=== PATIENT | male | born 1960 | race Two or more races ===

== ENCOUNTER 2017-06-05 12:03 | Emergency (ER) | payer MEDICAID ==
[~2017-06-05] VITALS: Ht 170.2 cm; Wt 81.6 kg
[~2017-06-05 12:03] MED LIST: AMLODIPINE BESYL5 MG ORAL; ASPIR 8181 MG ORAL; CARVEDILOL6.25 MG ORAL; DIABETES MEDICATION; NORVASC10 MG ORAL; ZESTRIL10 MG ORAL
[2017-06-05] MEDS ORDERED: VIMPAT50 MG PO (13:13)
[2017-06-05] MEDS ORDERED: TRAZODONE HCL150 MG ORAL (13:13)
[2017-06-05] MEDS ORDERED: XARELTO10 MG ORAL (13:15)
[2017-06-05] MEDS ORDERED: METOPROLOL TART25 MG ORAL (13:15)
[2017-06-05] MEDS ORDERED: LIPITOR20 MG ORAL (13:15)
[2017-06-05] MEDS ORDERED: TAMSULOSIN HCL0.4 MG ORAL (13:15)
[2017-06-05] MEDS ORDERED: PEPCID20 MG ORAL (13:15)
[2017-06-05] MEDS ORDERED: FERROUS SULFAT325 MG ORAL (13:15)
[2017-06-05 13:44] VITALS: BP 155/85
[2017-06-05 13:45] VITALS: BP 150/75
--- NOTE | 2017-06-09 13:55 | Emergency Room Report ---
History of Present Illness General Chief Complaint: Male Urogenital Problems Source: Patient Present Illness HPI 57-year-old male presents to ED for evaluation. States the last 2 days he's been having difficulty urinating. Notes prior history of prostate problems but cannot provide further explanation. patient states he is currently on Flomax as prescribed by his clinic. Notes 5/10 pressure pain in the suprapubic region. Denies any fevers or chills. Denies nausea or vomiting denies flank pain. No other aggravating or relieving factors. Denies any other associated symptoms Allergies: Coded Allergies: No Known Allergies (Unverified , 03/17/14) Patient History Past Medical History: HTN, CVA/TIA, seizures Pertinent Family History: none Social History: Denies: smoking, alcohol use, drug use Immunizations: UTD Reviewed Nursing Documentation: PMH: Agreed, PSxH: Agreed Nursing Documentation-PMH Past Medical History: No History, Except For Hx Cardiac Problems: Yes Hx Hypertension: Yes Hx Diabetes: Yes Hx Cancer: No Hx Gastrointestinal Problems: No Hx Neurological Problems: No Hx Cerebrovascular Accident: Yes Hx Seizures: Yes Review of Systems All Other Systems: negative except mentioned in HPI Physical Exam Vital Signs Date Time Temp Pulse Resp B/P (MAP) Pulse Ox O2 Delivery O2 Flow Rate FiO2 06/05/17 12:15 97.3 65 16 151/90 99 Room Air Sp02 EP Interpretation: reviewed, normal General Appearance: no apparent distress, alert, GCS 15, non-toxic Head: normocephalic, atraumatic Eyes: bilateral eye normal inspection, bilateral eye PERRL ENT: hearing grossly normal, normal pharynx, no angioedema, normal voice Neck: full range of motion, supple/symm/no masses Respiratory: chest non-tender, lungs clear, normal breath sounds, speaking full sentences Cardiovascular #1: regular rate, rhythm, no edema Cardiovascular #2: 2+ carotid (R), 2+ carotid (L), 2+ radial (R), 2+ radial (L) , 2+ dorsalis pedis (R), 2+ dorsalis pedis (L) Gastrointestinal: normal bowel sounds, non tender, soft, non-distended, no guarding, no rebound Rectal: deferred Genitourinary: normal inspection, no CVA tenderness Musculoskeletal: back normal, gait/station normal, normal range of motion, non- tender Neurologic: alert, oriented x3, responsive, motor strength/tone normal, sensory intact, speech normal Psychiatric: judgement/insight normal, memory normal, mood/affect normal, no suicidal/homicidal ideation Reflexes: 3+ bicep (R), 3+ bicep (L), 3+ tricep (R), 3+ tricep (L), 3+ knee (R) , 3+ knee (L) Skin: normal color, no rash, warm/dry, well hydrated Lymphatic: no adenopathy Medical Decision Making Diagnostic Impression: Primary Impression: Urinary retention ER Course Hospital Course 57-year-old M presents to ED complaining of urinary retention. Differential diagnoses include: obstruction, UTI, BPH Clinical course Patient placed on stretcher. After initial history and physical I ordered UA, moe cather We are Unable to Pl., Moe catheter due to urethral stricture I spoke to urology Dr. Juan; he is able to see the patient patient states he does not want to wait and wants to go to Dr Hines office Patient is stable with no hypertension or toxic signs. Patient can safely be discharged pending he goes to the urology office as scheduled Spoke to Dr. Juan and he was able to dilate the urethral stricture and discharge patient with moe catheter Diagnosis - urinary retention Stable and discharged home with moe + leg bag. Instructed to followup with PMD/urologist. Return to ED if symptoms recur or worsen Last Vital Signs Date Time Temp Pulse Resp B/P (MAP) Pulse Ox O2 Delivery O2 Flow Rate FiO2 06/05/17 13:45 75 18 150/75 99 Room Air 06/05/17 13:44 97.3 Status: improved Disposition: HOME, SELF-CARE Condition: Stable Referrals: Sivakumar Juan M.D. NOT CHOSEN IPA/,REFERRING (PCP) Patient Instructions: Benign Prostatic Hyperplasia CHUCK MIRELES M.D. Jun 09, 2017 13:55
== END 2017-06-05 13:48 | disposition home or self-care (01) ==
LOC: EMR 12:32
DX: R33.9 Retention of urine, unspecified (principal); I10 Essential (primary) hypertension; E11.9 Type 2 diabetes mellitus without complications; Z86.73 Personal history of transient ischemic attack (TIA), and cerebral infarction without residual deficits
CPT/HCPCS: 51702; 99283

== ENCOUNTER 2017-06-09 20:44 | Emergency (ER) | payer MEDICAID ==
[~2017-06-09] VITALS: Ht 167.6 cm; Wt 82.6 kg
[~2017-06-09 20:44] MED LIST changes: +FERROUS SULFAT325 MG ORAL; +LIPITOR20 MG ORAL; +METOPROLOL TART25 MG ORAL; +PEPCID20 MG ORAL; +TAMSULOSIN HCL0.4 MG ORAL; +TRAZODONE HCL150 MG ORAL; +VIMPAT50 MG PO; +XARELTO10 MG ORAL
--- NOTE | 2017-06-09 21:11 | Emergency Room Report ---
History of Present Illness General Chief Complaint: Male Urogenital Problems Source: Family Member Present Illness HPI Is a 57-year-old male with multiple problem. He was here last week for urinary retention. A De [place] was placed. Since then he's been having pain on the penis. Pain is severe. 10 out of 10. Worse with urination. Unable to get any comfort. He has an appointment with urologist but will be until next week. He came in wanting the De [place] to remove. Denies any fever chills denies any nausea vomiting. Currently taking Cipro. Allergies: Coded Allergies: No Known Allergies (Unverified , 03/17/14) Patient History Past Medical History: see triage record, old chart reviewed, HTN Past Surgical History: other Pertinent Family History: none Social History: Denies: smoking Immunizations: other Reviewed Nursing Documentation: PMH: Agreed, PSxH: Agreed Nursing Documentation-PMH Hx Cardiac Problems: Yes Hx Hypertension: Yes Hx Diabetes: Yes Hx Cancer: No Hx Gastrointestinal Problems: No Hx Neurological Problems: No Hx Cerebrovascular Accident: Yes Hx Seizures: Yes Review of Systems Eye: Denies: eye pain, blurred vision ENT: Denies: ear pain, nose congestion, throat swelling Respiratory: Denies: cough, shortness of breath Cardiovascular: Denies: chest pain, palpitations Gastrointestinal: Denies: abdominal pain, diarrhea, nausea, vomiting Genitourinary: Reports: pain Musculoskeletal: Denies: back pain, joint pain Skin: Denies: rash Neurological: Denies: headache, numbness Endocrine: Denies: increased thirst, increased urine Hematologic/Lymphatic: Denies: easy bruising All Other Systems: negative except mentioned in HPI Physical Exam Vital Signs Date Time Temp Pulse Resp B/P (MAP) Pulse Ox O2 Delivery O2 Flow Rate FiO2 06/09/17 20:47 97.9 64 18 159/90 98 Room Air vitals with high blood pressure Sp02 EP Interpretation: reviewed, normal General Appearance: well appearing, no apparent distress, alert Head: normocephalic, atraumatic Eyes: bilateral eye PERRL, bilateral eye EOMI ENT: hearing grossly normal, normal pharynx Neck: full range of motion, supple, no meningismus Respiratory: chest non-tender, lungs clear, normal breath sounds Cardiovascular #1: regular rate, rhythm, no murmur Gastrointestinal: normal bowel sounds, non tender, no mass, no organomegaly, no bruit, non-distended Genitourinary: other - De [place] intact with clear urine. No bleeding. Musculoskeletal: back normal, gait/station normal, normal range of motion Neurologic: alert, oriented x3 Psychiatric: mood/affect normal Skin: warm/dry Medical Decision Making Diagnostic Impression: Primary Impression: Dysuria ER Course This patient presents with dysuria and penile pain secondary to his [place]. He requested it to be removed. De [place] was removed and patient able to urinate afterward. He said he felt fine without it. Will discharge home with instructions come back if he has urinary retention. Patient and expressed understanding. Last Vital Signs Date Time Temp Pulse Resp B/P (MAP) Pulse Ox O2 Delivery O2 Flow Rate FiO2 06/09/17 20:47 97.9 64 18 159/90 98 Room Air Status: improved Disposition: HOME, SELF-CARE Condition: Stable Additional Instructions: Followup with your Dr. in 2-3 days if not better. Return if unable to urinate or any concern. ZION LAMBERT M.D. Jun 09, 2017 21:11
[2017-06-09 21:13] VITALS: BP 155/88
[2017-06-09 21:49] VITALS: BP 142/74
[2017-06-09 21:50] VITALS: BP 142/74
== END 2017-06-09 21:51 | disposition home or self-care (01) ==
LOC: EMR 21:25
DX: R30.0 Dysuria (principal); T83.84XA Pain due to genitourinary prosthetic devices, implants and grafts, initial encounter; Y84.6 Urinary catheterization as the cause of abnormal reaction of the patient, or of later complication, without mention of misadventure at the time of the procedure; Y92.009 Unspecified place in unspecified non-institutional (private) residence as the place of occurrence of the external cause; I10 Essential (primary) hypertension; E11.9 Type 2 diabetes mellitus without complications; Z86.73 Personal history of transient ischemic attack (TIA), and cerebral infarction without residual deficits
CPT/HCPCS: 99283

== ENCOUNTER 2017-06-26 01:37 | Inpatient (IN) | payer MEDICAID ==
[2017-06-26] VITALS (8 sets, daily range): BP systolic 113–147; BP diastolic 67–95
[~2017-06-26] VITALS: Ht 157.5 cm; Wt 72.6 kg
[2017-06-26 02:15] LABS: BASOPHILS % (AUTO) 0.8 % (0.0-2.0); MEAN CORPUSCULAR HEMOGLOBIN 27.2 PG (27.0-31.0); MEAN CORPUSCULAR HGB CONC 32.9 G/DL (32.0-36.0); MEAN CORPUSCULAR VOLUME 83 FL (80-99); MONOCYTES % (AUTO) 6.5 % (1.0-10.0); NEUTROPHILS % (AUTO) 63.8 % (45.0-75.0); PLATELET COUNT 128 K/UL (150-450); RED BLOOD COUNT 5.76 M/UL (4.70-6.10); RED CELL DISTRIBUTION WIDTH 13.7 % (11.6-14.8); WHITE BLOOD COUNT 7.8 K/UL (4.8-10.8)
[2017-06-26 02:23] LABS: APPEARANCE,URINE CLEAR; KETONES,URINE NEGATIVE (NEGATIVE); LEUKOCYTE ESTERASE ,URINE NEGATIVE (NEGATIVE); NITRITE,URINE NEGATIVE (NEGATIVE); PH,URINE 5 (4.5-8.0); PROTEIN,URINE NEGATIVE (NEGATIVE); UROBILINOGEN,URINE NORMAL MG/DL (0.0-1.0)
[2017-06-26 02:25] LABS: ANION GAP 6 mmol/L (5-15); CARBON DIOXIDE 27 MMOL/L (21-32); CHLORIDE 108 MMOL/L (98-107); CREATININE 1.2 MG/DL (0.55-1.30); GLOMERULAR FILTRATION RATE > 60 mL/min (>60); POTASSIUM 4.2 MMOL/L (3.5-5.1); SODIUM 141 MMOL/L (136-145)
[2017-06-26 02:39] LABS: ALANINE AMINOTRANSFERASE 32 U/L (12-78); ALBUMIN/GLOBULIN RATIO 0.9 (1.0-2.7); ASPARTATE AMINO TRANSFERASE 20 U/L (15-37); CKMB 1.4 NG/ML (0.0-3.6); TOTAL PROTEIN 7.9 G/DL (6.4-8.2)
--- NOTE | 2017-06-26 05:54 | Emergency Room Report ---
History of Present Illness General Chief Complaint: Hypertension Source: Patient Present Illness Allergies: Coded Allergies: No Known Allergies (Unverified , 03/17/14) Patient History Past Medical History: HTN, CVA/TIA, seizures Past Surgical History: none Pertinent Family History: none Social History: Denies: smoking, alcohol use, drug use Immunizations: UTD Reviewed Nursing Documentation: PMH: Agreed, PSxH: Agreed Nursing Documentation-PMH Hx Cardiac Problems: Yes Hx Hypertension: Yes Hx Diabetes: Yes Hx Cancer: No Hx Gastrointestinal Problems: No Hx Neurological Problems: No Hx Cerebrovascular Accident: Yes Hx Seizures: Yes Review of Systems All Other Systems: negative except mentioned in HPI Physical Exam Vital Signs Date Time Temp Pulse Resp B/P (MAP) Pulse Ox O2 Delivery O2 Flow Rate FiO2 06/26/17 01:40 98.2 72 16 168/108 98 Room Air Sp02 EP Interpretation: reviewed, normal General Appearance: no apparent distress, alert, GCS 15, non-toxic Head: normocephalic, atraumatic Eyes: bilateral eye normal inspection, bilateral eye PERRL ENT: hearing grossly normal, normal pharynx, no angioedema, normal voice Neck: full range of motion, supple/symm/no masses Respiratory: chest non-tender, normal breath sounds, crackles, speaking full sentences Cardiovascular #1: regular rate, rhythm, no edema Cardiovascular #2: 2+ carotid (R), 2+ carotid (L), 2+ radial (R), 2+ radial (L) , 2+ dorsalis pedis (R), 2+ dorsalis pedis (L) Gastrointestinal: normal bowel sounds, non tender, soft, non-distended, no guarding, no rebound Rectal: deferred Genitourinary: normal inspection, no CVA tenderness Musculoskeletal: back normal, gait/station normal, normal range of motion, non- tender Neurologic: alert, oriented x3, responsive, motor strength/tone normal, sensory intact, speech normal Psychiatric: judgement/insight normal, memory normal, mood/affect normal, no suicidal/homicidal ideation Reflexes: 3+ bicep (R), 3+ bicep (L), 3+ tricep (R), 3+ tricep (L), 3+ knee (R) , 3+ knee (L) Skin: normal color, no rash, warm/dry, well hydrated Lymphatic: no adenopathy Medical Decision Making Diagnostic Impression: Primary Impression: COPD exacerbation Additional Impression: Respiratory distress ER Course Hospital Course 57-year-old M presenting to ED with SOB. Differential diagnoses include: Pneumonia, CHF exacerbation, pneumothorax, fluid overload Clinical course Patient placed on stretcher. On cardiac sonographer with stable vitals. After initial history and physical, I ordered nebulizer treatments. I ordered labs, IV fluids, EKG, chest x-ray, blood cultures, UA. Labs - no leukocytosis noted, hemoglobin/hematocrit stable, electrolytes okay, lactate okay, troponins negative CXR - atelectasis vs infiltrate EKG - nsr, no acute ischemic changes interpreted by me abx given Case discussed with Dr. Arteaga and he agreed to the patient to his service for further care and support I feel this is a highly complex case requiring extensive working including EKG/ Rhythm strip, Xray/CT/US, Blood/urine lab work, repeat exams while in ED, and administration of strong opiates/narcotics for pain control, admission to hospital or close patient follow up. Diagnosis - COPD exacerbation, resp distress Patient admitted to telemetry in serious condition Labs Test 06/26/17 02:00 06/26/17 02:06 White Blood Count 7.8 K/UL (4.8-10.8) Red Blood Count 5.76 M/UL (4.70-6.10) Hemoglobin 15.7 G/DL (14.2-18.0) Hematocrit 47.7 % (42.0-52.0) Mean Corpuscular Volume 83 FL (80-99) Mean Corpuscular Hemoglobin 27.2 PG (27.0-31.0) Mean Corpuscular Hemoglobin Concent 32.9 G/DL (32.0-36.0) Red Cell Distribution Width 13.7 % (11.6-14.8) Platelet Count 128 K/UL (150-450) Mean Platelet Volume FL (6.5-10.1) Neutrophils (%) (Auto) 63.8 % (45.0-75.0) Lymphocytes (%) (Auto) 27.0 % (20.0-45.0) Monocytes (%) (Auto) 6.5 % (1.0-10.0) Eosinophils (%) (Auto) 2.0 % (0.0-3.0) Basophils (%) (Auto) 0.8 % (0.0-2.0) Sodium Level 141 MMOL/L (136-145) Potassium Level 4.2 MMOL/L (3.5-5.1) Chloride Level 108 MMOL/L (98-107) Carbon Dioxide Level 27 MMOL/L (21-32) Anion Gap 6 mmol/L (5-15) Blood Urea Nitrogen 26 mg/dL (7-18) Creatinine 1.2 MG/DL (0.55-1.30) Estimat Glomerular Filtration Rate > 60 mL/min (>60) Glucose Level 105 MG/DL (74-106) Lactic Acid Level 0.70 mmol/L (0.66-2.22) Calcium Level 9.0 MG/DL (8.5-10.1) Total Bilirubin 0.4 MG/DL (0.2-1.0) Aspartate Amino Transf (AST/SGOT) 20 U/L (15-37) Alanine Aminotransferase (ALT/SGPT) 32 U/L (12-78) Alkaline Phosphatase 112 U/L (46-116) Total Creatine Kinase 154 U/L (26-308) Creatine Kinase MB 1.4 NG/ML (0.0-3.6) Creatine Kinase MB Relative Index 0.9 Troponin I 0.000 ng/mL (0.000-0.056) Pro-B-Type Natriuretic Peptide 97 pg/mL (0-125) Total Protein 7.9 G/DL (6.4-8.2) Albumin 3.7 G/DL (3.4-5.0) Globulin 4.2 g/dL Albumin/Globulin Ratio 0.9 (1.0-2.7) Urine Color Yellow Urine Appearance Clear Urine pH 5 (4.5-8.0) Urine Specific [place] 1.020 (1.005-1.035) Urine Protein Negative (NEGATIVE) Urine Glucose (UA) Negative (NEGATIVE) Urine Ketones Negative (NEGATIVE) Urine Occult Blood Negative (NEGATIVE) Urine Nitrite Negative (NEGATIVE) Urine Bilirubin Negative (NEGATIVE) Urine Urobilinogen Normal MG/DL (0.0-1.0) Urine Leukocyte Esterase Negative (NEGATIVE) EKG Diagnostic Results Rate: normal Rhythm: NSR ST Segments: no acute changes ASA given to the pt in ED: No Rhythm Strip Diag. Results EP Interpretation: yes Rhythm: NSR, no PVC's, no ectopy Chest X-Ray Diagnostic Results Chest X-Ray Diagnostic Results : Chest X-Ray Ordered: Yes # of Views/Limited/Complete: 1 View Indication: Shortness of Breath EP Interpretation: Yes Interpretation: no pneumothorax, no acute cardiopulmonary disease, other - bilateral atelectasis Impression: Other - atelectasis/infiltrate Electronically Signed by: Electronically signed by Alexander Ackerman MD Last Vital Signs Date Time Temp Pulse Resp B/P (MAP) Pulse Ox O2 Delivery O2 Flow Rate FiO2 06/26/17 03:27 98.2 60 15 122/78 99 Room Air Status: improved Disposition: ADMITTED INPATIENT Condition: Serious Referrals: NON PHYSICIAN (PCP) ALEXANDER ACKERMAN M.D. Jun 26, 2017 05:54
[2017-06-26] MEDS ORDERED: Albuterol ud Inhalation HHN ONE (06:00)
[2017-06-26] MEDS ORDERED: Solu-MEDROL 125mg Inj IVP ONE (06:00)
[2017-06-26] MEDS ORDERED: Ipratropium 0.02% Inh Soln 2.5ml UD HHN ONE (06:00)
[2017-06-26] MEDS ORDERED: Albuterol/Ipratropium 3ml neb HHN PRN (08:15)
--- NOTE | 2017-06-26 09:43 | Diagnostic Imaging Report ---
Indication: SOB Technique: XRAY CHEST 1 V Comparison: 03/17/2014. Findings: The patient has taken a poor inspiration. The cardiomediastinal silhouette is normal. The lungs are clear. There is no evidence of pleural fluid. The bony structures are unremarkable. Impression: Poor inspiratory chest. Otherwise grossly negative.
[2017-06-26] MEDS: Heparin 5000 units/ml inj SUBQ SCH ×2 (10:07→20:48)
[2017-06-26] MEDS: Solu-MEDROL 40mg Inj IVP SCH (10:07)
[2017-06-26] MEDS: cefTRIAXone 1 GM in D5W 55 ML IVPB SCH (11:10)
--- NOTE | 2017-06-26 17:00 | History and Physical Report ---
DATE OF ADMISSION: 06/26/2017 CHIEF COMPLAINT: Shortness of breath. HISTORY OF PRESENT ILLNESS: This is a 57-year-old male, who presented to the emergency department complaining of several days of gradually increasing shortness of breath. The patient was treated before at the [facility] [place]. The patient is a very poor historian. PAST MEDICAL HISTORY: 1. Hypertensive cardiovascular disease. 2. History of congestive heart failure. 3. Status post CVA. MEDICATIONS: The home medications include amlodipine, baby aspirin, atorvastatin, Coreg, famotidine, oral iron, lacosamide, Zestril, metoprolol, Xarelto, tamsulosin, trazodone, diabetes medication, which the patient does not remember. ALLERGIES: No known drug allergies. SOCIAL HISTORY: The patient is a very poor historian. FAMILY HISTORY: The patient is a very poor historian. REVIEW OF SYSTEMS: The patient is a very poor historian. PHYSICAL EXAMINATION: GENERAL: This is an elderly male, who is in no acute distress. VITAL SIGNS: Blood pressure 140/84, pulse 81 and regular, respirations 20, and temperature 97.3 degrees. HEENT: The head is normocephalic and atraumatic. Pupils equal, round, and reactive to light and accommodation consensually. NECK: Supple. Trachea midline. There was no lymphadenopathy or thyromegaly. LUNGS: Clear to auscultation percussion. HEART: Regular rate and rhythm without rubs, murmurs, or gallops. ABDOMEN: Soft. Bowel sounds were active. EXTREMITIES: No clubbing, cyanosis, or edema. NEUROLOGICAL: The patient is alert and oriented x4. He has very slow mental responses and he is stuttering. There were no gross focal findings. LABORATORY AND ANCILLARY DATA: EKG, normal sinus rhythm, no signs of ischemia. CBC within normal limits. BMP within normal limits. Chest x-ray unremarkable. ASSESSMENT: 1. Suspected congestive heart failure exacerbation. 2. Rule out acute myocardial ischemia PLAN: 1. Continue home medication. 2. Repeat 2D echo. 3. Diurese. Stanford Montes M.D. DR: Edda JOB#: [id number] CC:
[2017-06-26] MEDS ORDERED: Atorvastatin 80mg tab ORAL SCH (21:00)
[2017-06-26] MEDS ORDERED: Tamsulosin 0.4mg cap ORAL SCH (21:00)
[2017-06-27] VITALS: BP 136/80
[2017-06-27 04:00] VITALS: BP 124/78
[2017-06-27 08:00] VITALS: BP 136/84
--- NOTE | 2017-06-27 08:39 | General Progress Note ---
Assessment/Plan Assessment/Plan Admitted with mild CHF -resolved. DC home. No evidence of acute myocardial ischemia. Subjective Allergies: Coded Allergies: No Known Allergies (Unverified , 03/17/14) Subjective No new c/o. Watching TV very comfortably. Objective Last 24 Hour Vital Signs Date Time Temp Pulse Resp B/P (MAP) Pulse Ox O2 Delivery O2 Flow Rate FiO2 06/27/17 08:04 75 16 Room Air 2.0 28 06/27/17 04:00 65 06/27/17 04:00 97.8 77 18 124/78 96 Room Air 06/27/17 00:00 64 06/27/17 00:00 98.2 73 18 136/80 98 Room Air 06/26/17 20:47 78 134/84 06/26/17 20:11 92 18 Room Air 06/26/17 20:00 90 06/26/17 20:00 98.3 82 18 134/84 96 Room Air 06/26/17 16:09 98.1 89 22 133/82 96 Nasal Cannula 2.0 06/26/17 16:00 Nasal Cannula 2.0 06/26/17 16:00 92 06/26/17 11:46 70 16 99 Nasal Cannula 2.0 28 06/26/17 11:45 Nasal Cannula 2.0 06/26/17 11:44 97.5 75 24 138/87 95 Nasal Cannula 2.0 06/26/17 11:39 68 18 100 Nasal Cannula 2.0 28 06/26/17 11:10 81 140/84 06/26/17 08:40 97.3 81 24 140/84 97 Nasal Cannula 2.0 06/26/17 08:40 Nasal Cannula 2.0 Height (Feet): 5 Height (Inches): 2.00 Weight (Pounds): 160 Objective CV RR Lungs CTA Abd SNT. BS + E No CCE CHANTEL ALARCON Jun 27, 2017 08:39
[2017-06-27] MEDS: Solu-MEDROL 40mg Inj IVP SCH (08:49)
[2017-06-27 08:50] VITALS: BP 136/84
[2017-06-27] MEDS ORDERED: Aspirin EC 81mg tab ORAL SCH (09:00)
[2017-06-27] MEDS ORDERED: Xarelto 10mg tab ORAL SCH (09:00)
[2017-06-27] MEDS: cefTRIAXone 1 GM in D5W 55 ML IVPB SCH (09:50)
[2017-06-27] MEDS ORDERED: NS 275ml ONE (10:25)
[2017-06-27] MEDS ORDERED: Tubing IV Secondary IV ONE (10:25)
--- NOTE | 2017-06-30 16:30 | Discharge Summary 2 SIG ---
DATE OF ADMISSION: 06/26/2017 DATE OF DISCHARGE: 06/27/2017 REASON FOR ADMISSION: 57-year-old male with a past medical history of hypertensive cardiovascular disease, CVA, diabetes, CHF, presented with respiratory distress. Blood pressure was elevated -168/108, pulse oximetry was stable. The patient complained of difficulty breathing. Chest x-ray revealed no acute cardiopulmonary disease. No leukocytosis. Stable hemoglobin and hematocrit. Lactate within normal limits. Troponin negative. EKG revealed normal sinus rhythm. No acute ischemic changes. Chest x-ray revealed atelectasis versus infiltrate. In the emergency department , the patient was given a dose of steroids, started on nebulizing treatment and admitted for possible chronic obstructive pulmonary disease exacerbation and respiratory distress. HOSPITAL COURSE: The patient was admitted to telemetry floor. The patient was on supplemental oxygen. Pulmonary toilet was provided as needed. Home medications were resumed. Blood pressure was controlled with regimen of calcium channel manny, beta-manny, and ISATU inhibitor. Aspirin and statin were resumed. Gastrointestinal prophylaxis was provided. Xarelto was resumed. Blood sugar was managed with sliding scale of insulin on as needed basis.The patient was started on diuresis.Echo was ordered. Next day, the patient felt better. He declined Echo. Pulse oximetry was stable on room air. No evidence of respiratory distress. The patient was stable for discharge home and follow up with the primary medical doctor. Reinforce compliance with medication regimen. Due to the rapid and unexpected improvement in patient condition, the patient was discharged in one day. FINAL DIAGNOSES: 1. Respiratory distress. 2. Possible chronic obstructive pulmonary disease exacerbation. 3. Possible mild congestive heart failure exacerbation. 4. Hypertension. 5. Diabetes. DISCHARGE MEDICATIONS: See medication reconciliation list. DISCHARGE INSTRUCTIONS: The patient was discharged home. Follow up with the primary medical doctor. Stanford Montes M.D. I have been assigned to dictate discharge summary on this account and I was not involved in the patient's management. Yamini Michael ([facility] HospitalApryl NCastilloPCastillo DR: CELSO JOB#: [id number] CC: GISSEL
--- NOTE | 2017-07-05 16:30 | Cardiology Report ---
APPROVED REPORT EKG Measurement Heart [id number] Normal sinus rhythm Cannot rule out Anterior infarct, age undetermined Abnormal ECG
== END 2017-06-27 11:45 | disposition home or self-care (01) | DRG 144 ==
LOC: EMR 01:51 → 2E 02:00 → EDBEDREQ 05:10 → 2E 06-27 08:10
DX: R06.03 Acute respiratory distress (principal); I11.0 Hypertensive heart disease with heart failure; J44.1 Chronic obstructive pulmonary disease with (acute) exacerbation; E11.9 Type 2 diabetes mellitus without complications; Z86.73 Personal history of transient ischemic attack (TIA), and cerebral infarction without residual deficits; Z79.02 Long term (current) use of antithrombotics/antiplatelets
CPT/HCPCS: 36415; 71010; 80053; 81003; 82550; 82553; 83605; 83880; 84484; 85025; 87040; 93005; 94640; 94664; 99285; J7620